=== PATIENT | male | born 1945 | race Caucasian/White ===

== ENCOUNTER 2020-01-22 14:32 | Outpatient (CLI) | payer MEDICARE, SELFPAY ==
[2020-01-22 15:37] LABS: Anion Gap 7 mmol/L (8-16); Blood Urea Nitrogen 11 mg/dL (9-20); Calcium 9.8 mg/dL (8.4-10.2); Carbon Dioxide 28 mmol/L (22-30); Chloride 105 mmol/L (98-107); Cholesterol 143 mg/dL (0-200); Estimated Glomerular Filt Rate > 60; Glucose 102 mg/dL (75-110); HDL Direct 48 mg/dL; Potassium 4.4 mmol/L (3.4-5.0); Sodium 140 mmol/L (137-145); Triglycerides 75 mg/dL (<150)
[2020-01-22 15:49] LABS: LDL Cholesterol Direct 74 mg/dL
[2020-01-22 16:12] LABS: Prostate Specific Antigen 3.4 ng/mL (< OR = 4.0)
[2020-01-22 16:20] LABS: Free T4 Free Thyroxine 1.01 ng/mL (0.78-2.19)
[2020-01-22 16:44] LABS: Hemoglobin A1C 5.3 % (<5.7)
== END 2020-01-22 14:33 | disposition home or self-care (01) ==
PROVIDERS: PCP Internal Medicine; Visit Provider Internal Medicine
DX: I10 Essential (primary) hypertension (principal); E78.2 Mixed hyperlipidemia; Z12.5 Encounter for screening for malignant neoplasm of prostate; Z79.899 Other long term (current) drug therapy
CPT/HCPCS: 36415; 80048; 80061; 83036; 84153; 84439; 84443; G0103

== ENCOUNTER 2020-06-09 13:37 | Outpatient (CLI) | payer MEDICARE, SELFPAY ==
[2020-06-09 14:24] LABS: Basophils Absolute Auto 0.1 K/mm3 (0.0-0.1); Basophils Percent Auto 0.6 % (0.2-1.2); Eosinophils Absolute Auto 0.1 K/mm3 (0-0.3); Eosinophils Percent Auto 1.4 % (0-4.4); Hematocrit 42.6 % (42.0-52.0); Hemoglobin 14.1 g/dL (14.0-18.0); Immature Granulocyte Absolute 0.04 K/mm3 (0.00-0.031); Immature Granulocyte Percent A 0.5 % (0-0.5); Lymphocytes Absolute Auto 2.59 K/mm3 (0.9-3.2); Lymphocytes Percent Auto 29.9 % (18.3-44.2); Mean Corpuscular HGB Conc 33.1 g/dl (32-36); Mean Corpuscular Hemoglobin 31.1 pg (26-34); Mean Corpuscular Volume 93.8 fl (80-100); Mean Platelet Volume 11.9 fl (7.4-10.4); Monocytes Absolute Auto 0.5 K/mm3 (0.1-0.6); Monocytes Percent Auto 5.8 % (2.6-8.5); Neutrophils Absolute Auto 5.4 K/mm3 (1.3-6.7); Neutrophils Percent Auto 61.8 % (45.5-73.1); Platelet Count Result 204 k/mm3 (150-375); Red Blood Count 4.54 M/mm3 (4.6-6.20); Red Cell Distribution Width 12.3 % (11.5-14.5); White Blood Count 8.7 K/mm3 (4.5-10.0)
[2020-06-09 14:32] LABS: Hemoglobin A1C 5.4 % (<5.7)
[2020-06-09 14:34] LABS: Potassium 4.1 mmol/L (3.4-5.0)
[2020-06-09 14:38] LABS: Alanine Aminotransferase 19 U/L (4-50); Albumin Level 4.3 g/dL (3.5-5.1); Alkaline Phosphatase 107 U/L (38-126); Anion Gap 5 mmol/L (8-16); Aspartate Amino Transferase 25 U/L (17-59); Bilirubin,Total 0.4 mg/dL (0.2-1.3); Blood Urea Nitrogen 12 mg/dL (9-20); Calcium 9.3 mg/dL (8.4-10.2); Carbon Dioxide 29 mmol/L (22-30); Chloride 106 mmol/L (98-107); Cholesterol 126 mg/dL (0-200); Estimated Glomerular Filt Rate > 60; Glucose 100 mg/dL (75-110); HDL Direct 41 mg/dL; Sodium 140 mmol/L (137-145); Triglycerides 84 mg/dL (<150)
[2020-06-09 14:46] LABS: LDL Cholesterol Direct 66 mg/dL
[2020-06-11 09:27] LABS: Homocysteine 15.5 umol/L (<11.4)
[2020-06-12 09:22] LABS: Vitamin D 1,25 (OH)2 Total 61 pg/mL (18-72); Vitamin D2 1,25 (OH)2 <8 pg/mL; Vitamin D3 1,25 (OH)2 61 pg/mL
== END 2020-06-09 13:38 | disposition home or self-care (01) ==
LOC: ANHLAB 13:40
PROVIDERS: PCP Internal Medicine; Visit Provider Internal Medicine
DX: E78.2 Mixed hyperlipidemia (principal); Z79.899 Other long term (current) drug therapy; I10 Essential (primary) hypertension; R79.89 Other specified abnormal findings of blood chemistry; E55.9 Vitamin D deficiency, unspecified
CPT/HCPCS: 36415; 80053; 80061; 82652; 83036; 83090; 84443; 85025

== ENCOUNTER 2020-10-30 14:58 | Outpatient (CLI) | payer MEDICARE, SELFPAY ==
[2020-10-30 15:38] LABS: Basophils Percent Auto 0.5 % (0.2-1.2); Eosinophils Absolute Auto 0.1 K/mm3 (0-0.3); Eosinophils Percent Auto 1.1 % (0-4.4); Hematocrit 43.7 % (42.0-52.0); Hemoglobin 14.3 g/dL (14.0-18.0); Immature Granulocyte Absolute 0.02 K/mm3 (0.00-0.031); Immature Granulocyte Percent A 0.2 % (0-0.5); Lymphocytes Absolute Auto 2.62 K/mm3 (0.9-3.2); Lymphocytes Percent Auto 30.9 % (18.3-44.2); Mean Corpuscular HGB Conc 32.7 g/dl (32-36); Mean Corpuscular Hemoglobin 32.1 pg (26-34); Monocytes Absolute Auto 0.6 K/mm3 (0.1-0.6); Monocytes Percent Auto 6.7 % (2.6-8.5); Neutrophils Absolute Auto 5.2 K/mm3 (1.3-6.7); Neutrophils Percent Auto 60.6 % (45.5-73.1); Platelet Count Result 175 k/mm3 (150-375); Red Blood Count 4.46 M/mm3 (4.6-6.20); Red Cell Distribution Width 12.5 % (11.5-14.5); White Blood Count 8.5 K/mm3 (4.5-10.0)
[2020-10-30 15:52] LABS: Anion Gap 7 mmol/L (8-16); Blood Urea Nitrogen 17 mg/dL (9-20); Calcium 9.7 mg/dL (8.4-10.2); Carbon Dioxide 27 mmol/L (22-30); Chloride 103 mmol/L (98-107); Cholesterol 139 mg/dL (0-200); Estimated Glomerular Filt Rate > 60; Glucose 87 mg/dL (65-110); HDL Direct 47 mg/dL; Potassium 4.3 mmol/L (3.4-5.0); Sodium 137 mmol/L (137-145); Triglycerides 94 mg/dL (<150)
[2020-10-30 16:04] LABS: LDL Cholesterol Direct 68 mg/dL
[2020-11-03 13:18] LABS: Homocysteine 11.1 umol/L (<11.4)
[2020-11-04 18:18] LABS: Vitamin D 1,25 (OH)2 Total 81 pg/mL (18-72); Vitamin D2 1,25 (OH)2 <8 pg/mL; Vitamin D3 1,25 (OH)2 81 pg/mL
== END 2020-10-30 14:59 | disposition home or self-care (01) ==
PROVIDERS: PCP Internal Medicine; Visit Provider Internal Medicine
DX: E55.9 Vitamin D deficiency, unspecified (principal); E78.2 Mixed hyperlipidemia; I10 Essential (primary) hypertension; R79.89 Other specified abnormal findings of blood chemistry
CPT/HCPCS: 36415; 80048; 80061; 82652; 83090; 85025

== ENCOUNTER 2021-01-18 11:12 | Outpatient (CLI) | payer MEDICARE, SELFPAY ==
--- NOTE | ~2021-01-18 | US_ITS ---
EXAMINATION: US aorta [facility] DATE: 01/18/2021 15:09 [employer] INDICATION: Abdominal aortic aneurysm screening. Smoking history. High cholesterol. Hypertension. History of MO. TECHNIQUE: Grayscale, color Doppler, and pulsed Doppler images of the aorta and common iliac arteries were obtained. COMPARISON: None. FINDINGS: The proximal aorta measures 2.5 cm greater dimension. The mid aorta measures 2 cm greatest sagittal d imension. The distal aorta measures 2.1 cm greatest sagittal dimension. The right common internal juana ac artery measures 9 mm. The left common iliac artery measures 9 mm. There is moderate diffuse athero sclerosis. IMPRESSION: 1. Atherosclerosis of the aorta without aneurysm. Reviewed, dictated and finalized at location A. [employer]
== END 2021-01-18 11:13 | disposition home or self-care (01) ==
LOC: ANHIMG 11:13
PROVIDERS: PCP Internal Medicine; Visit Provider Internal Medicine Cardiovascular Disease
DX: Z13.6 Encounter for screening for cardiovascular disorders (principal); Z72.0 Tobacco use
CPT/HCPCS: 76706

== ENCOUNTER 2021-04-06 14:13 | Outpatient (CLI) | payer MEDICARE, OTHER, SELFPAY ==
[2021-04-06 14:58] LABS: Anion Gap 10 mmol/L (8-16); Blood Urea Nitrogen 13 mg/dL (9-20); Calcium 9.5 mg/dL (8.4-10.2); Carbon Dioxide 27 mmol/L (22-30); Chloride 103 mmol/L (98-107); Cholesterol 128 mg/dL (0-200); Estimated Glomerular Filt Rate > 60; Glucose 111 mg/dL (65-110); HDL Direct 48 mg/dL; Potassium 4.1 mmol/L (3.4-5.0); Sodium 140 mmol/L (137-145); Triglycerides 72 mg/dL (<150)
[2021-04-06 15:08] LABS: LDL Cholesterol Direct 63 mg/dL
[2021-04-06 15:28] LABS: Prostate Specific Antigen 5.5 ng/mL (< OR = 4.0)
[2021-04-06 17:48] LABS: Free T4 Free Thyroxine 0.94 ng/mL (0.78-2.19); Vitamin D 25 Hydroxy 79.3 ng/mL
[2021-04-06 18:14] LABS: Hemoglobin A1C 5.3 % (<5.7)
== END 2021-04-06 14:14 | disposition home or self-care (01) ==
PROVIDERS: PCP Internal Medicine; Visit Provider Internal Medicine
DX: E55.9 Vitamin D deficiency, unspecified (principal); Z12.5 Encounter for screening for malignant neoplasm of prostate; I10 Essential (primary) hypertension; E78.2 Mixed hyperlipidemia; Z79.899 Other long term (current) drug therapy
CPT/HCPCS: 36415; 80048; 80061; 82306; 83036; 84153; 84439; 84443; G0103

== ENCOUNTER 2021-08-11 16:45 | Outpatient (CLI) | payer MEDICARE, OTHER, SELFPAY ==
--- NOTE | ~2021-08-11 | XR_ITS ---
EXAMINATION: XR chest 2V DATE: 08/11/2021 17:04 INDICATION: Personal history of nicotine dependence TECHNIQUE: PA and lateral views of the chest are obtained. COMPARISON: 08/28/2018 FINDINGS: The lungs are free of acute opacities. There is no pleural effusion or pneumothorax. The ca rdiomediastinal silhouette is normal. There is mild thoracic spondylosis. IMPRESSION: 1. No acute cardiopulmonary abnormality. Reviewed, dictated and finalized at location F.
== END 2021-08-11 16:46 | disposition home or self-care (01) ==
PROVIDERS: PCP Internal Medicine; Visit Provider Internal Medicine
DX: R05.3 Chronic cough (principal)
CPT/HCPCS: 71046

== ENCOUNTER 2021-08-24 17:53 | Outpatient (CLI) | payer MEDICARE, OTHER, SELFPAY ==
[2021-08-24 18:14] LABS: Basophils Percent Auto 0.3 % (0.2-1.2); Eosinophils Absolute Auto 0.1 K/mm3 (0-0.3); Eosinophils Percent Auto 0.8 % (0-4.4); Hematocrit 42.8 % (42.0-52.0); Hemoglobin 13.9 g/dL (14.0-18.0); Immature Granulocyte Absolute 0.04 K/mm3 (0.00-0.031); Immature Granulocyte Percent A 0.4 % (0-0.5); Lymphocytes Absolute Auto 2.33 K/mm3 (0.9-3.2); Mean Corpuscular HGB Conc 32.5 g/dl (32-36); Mean Corpuscular Hemoglobin 31.8 pg (26-34); Mean Corpuscular Volume 97.9 fl (80-100); Monocytes Absolute Auto 0.6 K/mm3 (0.1-0.6); Monocytes Percent Auto 5.5 % (2.6-8.5); Neutrophils Absolute Auto 7.1 K/mm3 (1.3-6.7); Platelet Count Result 174 k/mm3 (150-375); Red Blood Count 4.37 M/mm3 (4.6-6.20); Red Cell Distribution Width 12.4 % (11.5-14.5); White Blood Count 10.1 K/mm3 (4.5-10.0)
[2021-08-24 18:21] LABS: Hemoglobin A1C 5.3 % (<5.7)
[2021-08-24 18:26] LABS: Alanine Aminotransferase 17 U/L (6-50); Alkaline Phosphatase 85 U/L (38-126); Anion Gap 4 mmol/L (8-16); Aspartate Amino Transferase 24 U/L (17-59); Bilirubin,Total 0.5 mg/dL (0.2-1.3); Blood Urea Nitrogen 14 mg/dL (9-20); Calcium 9.7 mg/dL (8.4-10.2); Carbon Dioxide 29 mmol/L (22-30); Chloride 106 mmol/L (98-107); Estimated Glomerular Filt Rate > 60; Glucose 92 mg/dL (65-110); Potassium 3.9 mmol/L (3.4-5.0); Sodium 139 mmol/L (137-145)
[2021-08-24 19:05] LABS: Free T4 Free Thyroxine 0.98 ng/mL (0.78-2.19); Vitamin D 25 Hydroxy 87.4 ng/mL
[2021-08-25 10:38] LABS: Cholesterol 130 mg/dL (0-200); HDL Direct 39 mg/dL; Triglycerides 102 mg/dL (<150)
[2021-08-25 10:49] LABS: LDL Cholesterol Direct 64 mg/dL
== END 2021-08-24 17:54 | disposition home or self-care (01) ==
LOC: ANHLAB 17:53
PROVIDERS: PCP Internal Medicine; Visit Provider Internal Medicine
DX: E55.9 Vitamin D deficiency, unspecified (principal); I10 Essential (primary) hypertension; Z13.1 Encounter for screening for diabetes mellitus; Z79.899 Other long term (current) drug therapy; Z13.29 Encounter for screening for other suspected endocrine disorder; E78.2 Mixed hyperlipidemia
CPT/HCPCS: 36415; 80053; 80061; 82306; 83036; 84439; 84443; 85025

== ENCOUNTER 2021-10-14 16:03 | Outpatient (CLI) | payer MEDICARE, OTHER, SELFPAY ==
--- NOTE | ~2021-10-14 | CT_ITS ---
EXAMINATION: CT lung screening DATE: 10/14/2021 16:21 INDICATION: Due for LDCT TECHNIQUE: Computed tomography (CT) of the chest was performed without intravenous contrast. Addition al 3D reconstructions utilizing coronal maximum intensity projection (MIP) were performed. Automated exposure control and iterative reconstruction technique were employed. The dose-length product was 87 .99 mGy-cm. COMPARISON: None FINDINGS: Mild elevation the left hemidiaphragm. Minimal dependent atelectasis in the bilateral lower lobes. No pneumonia, suspicious pulmonary nodules, pulmonary edema or pleural effusion. Mild cardiomegaly. Ath erosclerotic coronary artery disease with atherosclerotic calcifications and/or coronary artery stent ing. No pericardial effusion. Thoracic aorta is normal in caliber. No pathologically enlarged thoraci c lymphadenopathy. There are couple low-attenuation cysts in the right hepatic lobe the larger measur ing 1.5 cm. Mild to moderate spondylosis. IMPRESSION: 1. . Lung-RADS category 1: Negative. Continue annual screening with noncontrast low-dose chest CT in 12 months. Reviewed, dictated and finalized at location A.
== END 2021-10-14 16:04 | disposition home or self-care (01) ==
PROVIDERS: PCP Internal Medicine; Visit Provider Internal Medicine
DX: Z12.2 Encounter for screening for malignant neoplasm of respiratory organs (principal); Z87.891 Personal history of nicotine dependence
CPT/HCPCS: 71271

== ENCOUNTER 2022-01-06 14:36 | Outpatient (CLI) | payer MEDICARE, OTHER, SELFPAY ==
[2022-01-06 15:17] LABS: Basophils Percent Auto 0.3 % (0.2-1.2); Eosinophils Absolute Auto 0.1 K/mm3 (0-0.3); Eosinophils Percent Auto 0.7 % (0-4.4); Hematocrit 43.4 % (42.0-52.0); Hemoglobin 14.7 g/dL (14.0-18.0); Immature Granulocyte Absolute 0.03 K/mm3 (0.00-0.031); Immature Granulocyte Percent A 0.3 % (0-0.5); Lymphocytes Absolute Auto 2.38 K/mm3 (0.9-3.2); Lymphocytes Percent Auto 23.9 % (18.3-44.2); Mean Corpuscular HGB Conc 33.9 g/dl (32-36); Mean Corpuscular Hemoglobin 31.6 pg (26-34); Mean Corpuscular Volume 93.3 fl (80-100); Mean Platelet Volume 11.4 fl (7.4-10.4); Monocytes Absolute Auto 0.5 K/mm3 (0.1-0.6); Monocytes Percent Auto 5.1 % (2.6-8.5); Neutrophils Absolute Auto 6.9 K/mm3 (1.3-6.7); Neutrophils Percent Auto 69.7 % (45.5-73.1); Platelet Count Result 212 k/mm3 (150-375); Red Blood Count 4.65 M/mm3 (4.6-6.20); Red Cell Distribution Width 12.3 % (11.5-14.5); White Blood Count 9.9 K/mm3 (4.5-10.0)
[2022-01-06 15:32] LABS: Alanine Aminotransferase 24 U/L (6-50); Albumin Level 4.6 g/dL (3.5-5.1); Alkaline Phosphatase 108 U/L (38-126); Anion Gap 9 mmol/L (8-16); Aspartate Amino Transferase 32 U/L (17-59); Bilirubin,Total 0.9 mg/dL (0.2-1.3); Blood Urea Nitrogen 12 mg/dL (9-20); Calcium 9.3 mg/dL (8.4-10.2); Carbon Dioxide 26 mmol/L (22-30); Chloride 104 mmol/L (98-107); Cholesterol 150 mg/dL (0-200); Estimated Glomerular Filt Rate > 60; Glucose 105 mg/dL (65-110); HDL Direct 48 mg/dL; Potassium 4.2 mmol/L (3.4-5.0); Sodium 139 mmol/L (137-145); Triglycerides 60 mg/dL (<150)
[2022-01-06 15:42] LABS: LDL Cholesterol Direct 77 mg/dL
[2022-01-06 17:20] LABS: Free T4 Free Thyroxine 1.08 ng/mL (0.78-2.19); Hemoglobin A1C 5.6 % (<5.7); Vitamin D 25 Hydroxy 72.1 ng/mL
== END 2022-01-06 14:37 | disposition home or self-care (01) ==
PROVIDERS: PCP Internal Medicine; Visit Provider Internal Medicine
DX: Z13.1 Encounter for screening for diabetes mellitus (principal); Z79.899 Other long term (current) drug therapy; E55.9 Vitamin D deficiency, unspecified; E78.2 Mixed hyperlipidemia; I10 Essential (primary) hypertension; Z13.29 Encounter for screening for other suspected endocrine disorder
CPT/HCPCS: 36415; 80053; 80061; 82306; 83036; 84439; 84443; 85025

== ENCOUNTER 2022-05-21 12:50 | Outpatient (CLI) | payer MEDICARE, SELFPAY ==
[2022-05-21 13:09] LABS: Basophils Percent Auto 0.4 % (0.2-1.2); Eosinophils Absolute Auto 0.1 K/mm3 (0-0.3); Hematocrit 45.5 % (42.0-52.0); Immature Granulocyte Absolute 0.04 K/mm3 (0.00-0.031); Immature Granulocyte Percent A 0.4 % (0-0.5); Lymphocytes Absolute Auto 2.55 K/mm3 (0.9-3.2); Lymphocytes Percent Auto 27.7 % (18.3-44.2); Mean Corpuscular Hemoglobin 32.5 pg (26-34); Mean Corpuscular Volume 98.7 fl (80-100); Mean Platelet Volume 11.9 fl (7.4-10.4); Monocytes Absolute Auto 0.5 K/mm3 (0.1-0.6); Monocytes Percent Auto 5.4 % (2.6-8.5); Neutrophils Percent Auto 65.1 % (45.5-73.1); Platelet Count Result 191 k/mm3 (150-375); Red Blood Count 4.61 M/mm3 (4.6-6.20); Red Cell Distribution Width 12.3 % (11.5-14.5); White Blood Count 9.2 K/mm3 (4.5-10.0)
[2022-05-21 13:13] LABS: Alanine Aminotransferase 23 U/L (6-50); Albumin Level 4.5 g/dL (3.5-5.1); Alkaline Phosphatase 96 U/L (38-126); Anion Gap 4 mmol/L (8-16); Aspartate Amino Transferase 28 U/L (17-59); Bilirubin,Total 0.6 mg/dL (0.2-1.3); Blood Urea Nitrogen 16 mg/dL (9-20); Calcium 9.5 mg/dL (8.4-10.2); Carbon Dioxide 29 mmol/L (22-30); Chloride 103 mmol/L (98-107); Cholesterol 135 mg/dL (0-200); Estimated Glomerular Filt Rate > 60; Glucose 98 mg/dL (65-110); HDL Direct 52 mg/dL; Potassium 4.6 mmol/L (3.4-5.0); Sodium 136 mmol/L (137-145); Triglycerides 56 mg/dL (<150)
[2022-05-21 13:24] LABS: LDL Cholesterol Direct 71 mg/dL
[2022-05-21 13:27] LABS: Free T4 Free Thyroxine 0.97 ng/mL (0.78-2.19); Hemoglobin A1C 5.3 % (<5.7); Vitamin D 25 Hydroxy 79.7 ng/mL
== END 2022-05-21 12:51 | disposition home or self-care (01) ==
PROVIDERS: PCP Internal Medicine; Visit Provider Internal Medicine
DX: E55.9 Vitamin D deficiency, unspecified (principal); Z13.29 Encounter for screening for other suspected endocrine disorder; Z79.899 Other long term (current) drug therapy; E78.2 Mixed hyperlipidemia; I10 Essential (primary) hypertension; Z13.1 Encounter for screening for diabetes mellitus
CPT/HCPCS: 36415; 80053; 80061; 82306; 83036; 84439; 84443; 85025

== ENCOUNTER 2022-05-30 15:53 | Inpatient (IN) | payer MEDICARE, OTHER, SELFPAY ==
[2022-05-27 16:20] VITALS: BMI 25.7
[2022-05-30] VITALS (37 sets, daily range): BP systolic 70–176; BP diastolic 39–102; PULSE 38–78; RESP 12–20; TEMP 36.5–36.9; O2SAT 96–100; BMI 24.7
[2022-05-30 08:46] LABS: Basophils Percent Auto 0.4 % (0.2-1.2); Eosinophils Absolute Auto 0.1 K/mm3 (0-0.3); Eosinophils Percent Auto 1.1 % (0-4.4); Hemoglobin 14.9 g/dL (14.0-18.0); Immature Granulocyte Absolute 0.02 K/mm3 (0.00-0.031); Immature Granulocyte Percent A 0.3 % (0-0.5); Lymphocytes Absolute Auto 1.64 K/mm3 (0.9-3.2); Lymphocytes Percent Auto 22.4 % (18.3-44.2); Mean Corpuscular HGB Conc 33.1 g/dl (32-36); Mean Corpuscular Hemoglobin 32.3 pg (26-34); Mean Corpuscular Volume 97.6 fl (80-100); Mean Platelet Volume 11.6 fl (7.4-10.4); Monocytes Absolute Auto 0.5 K/mm3 (0.1-0.6); Monocytes Percent Auto 6.4 % (2.6-8.5); Neutrophils Absolute Auto 5.1 K/mm3 (1.3-6.7); Neutrophils Percent Auto 69.4 % (45.5-73.1); Platelet Count Result 201 k/mm3 (150-375); Red Blood Count 4.61 M/mm3 (4.6-6.20); Red Cell Distribution Width 12.3 % (11.5-14.5); White Blood Count 7.3 K/mm3 (4.5-10.0)
[2022-05-30 08:56] LABS: Anion Gap 4 mmol/L (8-16); Blood Urea Nitrogen 17 mg/dL (9-20); Calcium 9.3 mg/dL (8.4-10.2); Carbon Dioxide 30 mmol/L (22-30); Chloride 106 mmol/L (98-107); Estimated CRCL calculation 49 ml/min; Estimated Glomerular Filt Rate > 60; Glucose 86 mg/dL (65-110); Sodium 140 mmol/L (137-145)
[2022-05-30 09:00] LABS: INR 1.1; Prothrombin Time 13.3 Seconds (11.1-14.7)
--- NOTE | 2022-05-30 10:28 | PM.IMHP ---
H&P: HPI History of Present Illness Date/Time: 05/30/22 10:28 Chief Complaint: intermittent chest pain Narrative: this is a 76-year-old man with coronary artery disease, previous PCI, hypertension dyslipidemia and ongoing cigarette smoking. He has been having episodes of intermittent chest pain for a couple of months that are occurring in a nonexertional fashion. Nuclear stress testing demonstrates a large perfusion defect that appears to be fixed in the inferior wall and somewhat reversible in the lateral wall. In this setting follow-up angiography has been recommended. Review of Systems Constitutional: Constitutional: Reports no additional constitutional complaints Eyes: Eyes: Reports no additional eye complaints ENT: Reports system reviewed and no additional complaints, except as documented Cardiovascular: Cardiovascular: Reports as per HPI and Reports chest pain Respiratory: Respiratory: Reports no additional respiratory complaints Gastrointestinal: Gastrointestinal: Reports no additional gastrointestinal complaints Musculoskeletal: Musculoskeletal: Reports no additional musculoskeletal complaints Integumentary/Breasts: Skin/Breast: Reports system reviewed and no additional complaints, except as docu Neurologic: Reports system reviewed and no additional complaints, except as documented [facility] Past Medical History Medical History (Updated 01/06/22 @ 14:07 by Jeane Nation [facility]) ASHD (arteriosclerotic heart disease) BMI 25.0-25.9,adult BMI 26.0-26.9,adult BMI 27.0-27.9,adult BMI 28.0-28.9,adult BPH (benign prostatic hyperplasia) Dupuytren's contracture of left hand Elevated homocysteine Elevated PSA Encounter for routine adult health examination without abnormal findings Encounter for special screening examination for neoplasm of prostate Essential (primary) hypertension Hearing loss Hx of colonic polyps Hyperlipidemia Medicare annual wellness visit, subsequent On snf drug therapy Pain of left thumb Tobacco abuse Travelers' diarrhea Vitamin D deficiency Family History Family History Mother Patient's mother is in good health, Onset Age: 93 Father Cerebrovascular accident Patient's father is Sibling Family history of coronary artery disease Other Family history of dementia Social History Social History (Updated 01/06/22 @ 14:07 by Jeane Nation CMA) Smoking packs per day: 0.5 Smoking cigarettes per day: 10.0 Years smoked: 30 Smoking pack-years: 15.00 Smoking status: Current every day smoker Tobacco type: cigarettes Second hand tobacco smoke exposure: Yes Smoking end date: 03/13/09 Alcohol intake: current Alcohol use details: occasionally Substance use: never Lack of Transportation: No Lack of Food: Never True Current Housing: I Have Housing Concerned About Future Housing: No Difficulty Paying Gas/Electric Bills: No Difficulty Paying for Meds: No Currently Unemployed: No Education: High School Diploma/GED Difficulty w/ Childcare or Family Care: No Living arrangements: with family Gender identity (if verbalized by the patient): Male Spiritual care concerns: No Meds Home Medications and Allergies Home Medications Medication Instructions Recorded Confirmed Type omega-3 fatty acids 1,000 mg 1,000 mg PO BID 01/15/19 05/27/22 History capsule (Fish Oil Concentrate) cholecalciferol (vitamin D3) 25 25 mcg PO DAILY 09/12/19 05/27/22 History mcg (1,000 unit) capsule mecobalamin (vitamin B12) 1,000 1,000 mcg sublingual DAILY 06/25/20 05/27/22 History mcg disintegrating tablet,sublingual atorvastatin 80 mg tablet See Rx Instructions .Route 01/18/21 05/27/22 Rx .COMPLEX #90 tabs clopidogrel 75 mg tablet See Rx Instructions .Route 01/18/21 05/30/22 Rx .COMPLEX #90 tabs lisinopril 10 mg tablet See Rx Instructions .Route 01/18/2105/30
--- NOTE | 2022-05-30 10:31 | WPDMODSED ---
Moderate Sedation Note-Pt Data Patient Data Diagnosis: coronary artery disease with intermittent chest pain previous PCI abnormal nuclear stress test Present Complaint: intermittent chest pain Procedure to be performed/Plan: left heart catheterization Allergies Allergy/AdvReac Type Severity Reaction Status Date / Time No Known Allergies Allergy Verified 05/27/22 16:46 Home Medications Medication Instructions Recorded Confirmed Type omega-3 fatty acids 1,000 mg 1,000 mg PO BID 01/15/19 05/27/22 History capsule (Fish Oil Concentrate) cholecalciferol (vitamin D3) 25 25 mcg PO DAILY 09/12/19 05/27/22 History mcg (1,000 unit) capsule mecobalamin (vitamin B12) 1,000 1,000 mcg sublingual DAILY 06/25/20 05/27/22 History mcg disintegrating tablet,sublingual atorvastatin 80 mg tablet See Rx Instructions .Route 01/18/21 05/27/22 Rx .COMPLEX #90 tabs clopidogrel 75 mg tablet See Rx Instructions .Route 01/18/21 05/30/22 Rx .COMPLEX #90 tabs lisinopril 10 mg tablet See Rx Instructions .Route 01/18/21 05/30/22 Rx .COMPLEX #90 tabs metoprolol tartrate 25 mg tablet See Rx Instructions .Route 01/18/21 05/30/22 Rx .COMPLEX #180 tabs montelukast 10 mg tablet See Rx Instructions .Route 01/18/21 05/27/22 Rx .COMPLEX #90 tabs aspirin 81 mg tablet,delayed 81 mg PO DAILY 10/04/21 05/30/22 History release nitroglycerin 0.4 mg sublingual 0.4 mg sublingual Q5MIN 05/27/22 05/27/22 History tablet Current Medications: Active Medications Sodium Chloride (Normal Saline Iv) 500 mls @ 100 mls/hr IV CONT .Q5H NIKKY Sedation/Anesthesia: No previous sedation/anesthesia problems (including family history). [facility] Past Medical History Medical History (Updated 01/06/22 @ 14:07 by Jeane Nation CMA) ASHD (arteriosclerotic heart disease) BMI 25.0-25.9,adult BMI 26.0-26.9,adult BMI 27.0-27.9,adult BMI 28.0-28.9,adult BPH (benign prostatic hyperplasia) Dupuytren's contracture of left hand Elevated homocysteine Elevated PSA Encounter for routine adult health examination without abnormal findings Encounter for special screening examination for neoplasm of prostate Essential (primary) hypertension Hearing loss Hx of colonic polyps Hyperlipidemia Medicare annual wellness visit, subsequent On termite treater helper drug therapy Pain of left thumb Tobacco abuse Travelers' diarrhea Vitamin D deficiency Family History Family History Mother Patient's mother is in good health, Onset Age: 93 Father Cerebrovascular accident Patient's father is Sibling Family history of coronary artery disease Other Family history of dementia Social History Social History (Updated 01/06/22 @ 14:[address] [facility]) Smoking packs per day: 0.5 Smoking cigarettes per day: 10.0 Years smoked: 30 Smoking pack-years: 15.00 Smoking status: Current every day smoker Tobacco type: cigarettes Second hand tobacco smoke exposure: Yes Smoking end date: 03/13/09 Alcohol intake: current Alcohol use details: occasionally Substance use: never Lack of Transportation: No Lack of Food: Never True Current Housing: I Have Housing Concerned About Future Housing: No Difficulty Paying Gas/Electric Bills: No Difficulty Paying for Meds: No Currently Unemployed: No Education: High School Diploma/GED Difficulty w/ Childcare or Family Care: No Living arrangements: with family Gender identity (if verbalized by the patient): Male Spiritual care concerns: No Mod Sed Physical Exam Physical Exam Pre Procedural Exam: Normal: Appearance, Neck, Throat, Airway, Lungs, Heart Size, Heart Rate, Heart Rhythm, Neuro Exam and Extremities Hours since solid foods: 12 Hours since liquid intake: 12 Mallampati Classification: class II Internal Medicine - PN: Obj Da Vital Signs Vital Signs: Vital Signs - 24 hr
--- NOTE | 2022-05-30 11:28 | WPDCARDPROC ---
Cardiac Cath Procedure Note Date of procedure:: 05/30/22 Performing physician:: Israel Jaimes MD Indication:: chest pain coronary artery disease with previous PCI/mi abnormal nuclear stress test Brief clinical history:: this is a 76-year-old man with coronary artery disease hypertension and ongoing cigarette smoking. In the remote past he underwent stenting of his LAD and right coronary arteries appear he now is having recurrent chest pain and nuclear stress testing suggests previous inferior infarction as well as some lateral ischemia. Procedure Procedure performed:: Left ventriculogram coronary angiogram PCI(MITCH) to mid right coronary artery Sedation/Medication given:: fentanyl 25 Versed 2 mg case start time 1044 case end time 11:28 a.m. sedation provided Emily Valenzuela RN, trained observer Access site:: right femoral artery Estimated blood loss:: 25 cc Procedure note:: patient was brought to the cardiac catheterization lab postabsorptive state where the right femoral triangle was prepared usual fashion. Anesthesia was provided with 1% lidocaine infiltrated locally. Using modified Seldinger technique 5 [place] sheath was placed into the femoral artery and left heart catheterization was carried out. I used a 5 [place] angled pigtail catheter to document left-sided hemodynamics and to inject LV g in the 30 degree ARSHAD projection. Following this I used a standard 5 [place] FL4 catheter 18 to the left coronary artery and then a 5 [place] JR4 catheter to engage inject the right coronary artery. The cineangiograms were then reviewed and after to his PCI the RCA recommended carried out as detailed below. The patient is chronically taking an aspirin clopidogrel and did not therefore receive any additional anti-platelet therapy in his procedure. He was anticoagulated bolus and infusion Angiomax for this intervention. Prior to intervention the 5 [place] sheath was exchanged over the guidewire for 6 [place] sheath. Procedure was carried out as described below and was well tolerated and uncomplicated. 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 Findings:: Hemodynamics: Central aortic pressure is 1 38 over 58 left ventricle 138 over for end-diastolic is 20 no gradient pullback across the aortic valve. Left ventricle: The LV is normal in size the mid to inferior posterior segments are akinetic. The remainder of the LV contracts well the global ejection fraction is visually estimated at 50%. The left main coronary artery is widely patent the left anterior descending is a medium caliber artery extending down to around the apex. Long previously deployed stent visible in the proximal LAD there is no significant loss of lumen or stenosis in the LAD. The circumflex is a moderate caliber artery giving rise to 4 marginal branches. These are small vessels which are all angiographically free of disease. Right coronary artery is large in caliber and dominant to the posterior circulation the right coronary artery has a long visible stent from the proximal portion down to the junction between the 2nd and 3rd portions of the artery. In distal 3rd of this stented area there is a 99% complex looking stenosis. There was NELA 3 flow in the right coronary artery. Intervention: The right coronary artery was engaged using a 6 [place] JR4 guiding catheter. I used a 0.014 BMW wire to traverse the stenosis at which was advanced without difficulty into the largest RPL branch. Following this I elected to gently pre-dilated this lesion with a 2 by 20 mm standard balloon. Following this I dilated the area with a 3.5 x 20 mm noncompliant balloon at 16 atmospheres which provided good patency with minimal residual stenosis. Lastly I elected to place another stent using a 3.5 x 18 mm Orsiro drug-eluting stent at the target lesion which was in the previously deployed stent and dilated this at 16 atmospher
--- NOTE | 2022-05-30 12:23 | SUR.PHASEII ---
Angiomax drip complete at this time. c/o back pain
[2022-05-30] MEDS: ACETAMINOPHEN 325 MG TABLET 650 MG PO (12:37)
--- NOTE | 2022-05-30 15:16 | SUR.PHASEII ---
Pt given 0.5 mg of atropine after sheath removal while holding pressure. Pt slightly sweaty, heart rate decreased to as low as 31, and blood pressure dropped. Dr. Jaimes notified. Vital signs returned to baseline.
--- NOTE | 2022-05-30 16:49 | PC.NURSE ---
Phone report to JUSTIN Hargrove at this time. SBAR was sent at 1624. No hematoma or bruising to rt groin. Drsg rt groin remains d/i. Good CMS below rt femoral arterial puncture site. VS stable. No c/o chest pain or sob. IV site saline locked and patent/intact. Belongings and family sent to room 211 with pt.
[2022-05-30] MEDS: OMEGA 3 POLYUNSAT FATTY ACIDS 1 GM CAP PO (17:16)
[2022-05-30] MEDS: SODIUM CHLORIDE 0.9% IV 500 ML 100 ML IV CONT (18:30)
[2022-05-30] MEDS: METOPROLOL TARTRATE 25 MG TABLET BY MOUTH (20:20)
[2022-05-31] VITALS (7 sets, daily range): BP systolic 131–141; BP diastolic 43–66; PULSE 45–82; RESP 16–18; TEMP 36.3–36.6; O2SAT 97–98
[2022-05-31] MEDS: lisinopriL 10 MG TABLET BY MOUTH (08:53)
[2022-05-31] MEDS: ATORVASTATIN 40 MG TABLET BY MOUTH (08:53)
[2022-05-31] MEDS: CLOPIDOGREL BISULFATE 75 MG TABLET BY MOUTH (08:53)
[2022-05-31] MEDS: METOPROLOL TARTRATE 25 MG TABLET BY MOUTH (08:53)
[2022-05-31] MEDS: OMEGA 3 POLYUNSAT FATTY ACIDS 1 GM CAP PO (08:53)
[2022-05-31] MEDS: CHOLECALCIFEROL 1,000 UNITS TABLET 1000 UNITS PO (08:53)
[2022-05-31] MEDS: MONTELUKAST SODIUM 10 MG TABLET BY MOUTH (08:54)
[2022-05-31] MEDS: ASPIRIN 81 MG ENTERIC TABLET PO (08:57)
--- NOTE | 2022-05-31 10:53 | PM.DS ---
DS: Admitting Diagnosis Discharge Date 05/31/2022 Admitting Diagnosis Coronary artery disease DS: Discharge Diagnosis Discharge Diagnosis (1) ASHD (arteriosclerotic heart disease): Code(s): I25.10 - Atherosclerotic heart disease of nez perce coronary artery without angina pectoris Status: Acute Plan this is a 76-year-old man known to have coronary disease previous PCI with stenting of his LAD and right coronary arteries in the remote past. He has hypertension dyslipidemia and continues to smoke. He is now having episodes of intermittent chest pain in a nonexertional fashion for a couple of months and has an abnormal nuclear stress test. In this setting a follow-up angiogram has been recommended. Angiogram revealed right coronary dominant circulation with coronary artery disease with 99% in stent stenosis in the mid RCA. This was treated with balloon angioplasty and placement of one MITCH. Continue ASA, plavix, statin, and risk factor modification. DS: Summary Hospital Course Hospital Course: 05/30/2022: Underwent elective outpatient cath that revealed right coronary dominant circulation with coronary artery disease with 99% in stent stenosis in the mid RCA. This was treated with balloon angioplasty and placement of one MITCH. No post-procedural complications. Time Spent with Patient Time attestation: Total time spent providing and/or coordinating discharge services: Exam Const: General: comfortable and no acute distress Other: Pleasant white male appearing his stated age in no obvious distress HENMT: Mouth: Yes moist mucous membranes Eyes: Sclera: sclerae normal Pupils: Equal, round and reactive pupils present Neck: Neck: supple and no JVD Other: carotid pulses are intact bilaterally Resp: Effort & Inspection: normal respiratory effort Auscultation: clear to auscultation bilaterally Cardio: Rate: regular rate Rhythm: regular rhythm GI: Auscultation: normal bowel sounds Skin: General skin exam: normal color Neuro: Cranial nerves: Yes Equal, round and reactive pupils present Other: alert and oriented normal cognition Extrem: Other: no edema, adequate perfusion Discharge Plan Discharge Consulting providers: Cindy Grullon Discharging Clinician: Cindy Grullon Patient Disposition: Home, Self-Care Activity: other - see discharge instructions Diet: heart healthy Discharge Instructions: [facility] [address] [place] [address] DISCHARGE INSTRUCTIONS - POST CARDIAC CATH Activity Restriction 1. No Driving for 24 hours 2. No lifting, pushing or pulling more than 10 LBS for 1 week 3. No strenuous activity or exercising for 1 week 4. Shower after 24 hours, do not soak in any water such as hot tubs or bath tubs Wound Care 1. Remove dressing 24 hours after your procedure prior to showering 2. Lather soap and water to puncture site and rinse then pat dry 3. You may apply a new band aid to the site and remove aft er 24 hours then leave open to air 4. Monitor daily for redness, drainage, mild swelling and fever Report IMMEDIATELY: CALL 911 1. If you experience any swelling or bleeding from puncture site. Hold firm pressure over the puncture site until help arrives 2. If you experience any new discomfort in you back, neck, jaw, stomach or arm. Any shortness of breath, nausea, vomiting, or cold sweats 3. If you experi
== END 2022-05-31 11:50 | disposition home or self-care (01) | DRG 247 ==
LOC: ANHIMU 16:37
PROVIDERS: Admitting Provider Specialist; PCP Internal Medicine; Visit Provider Specialist
PROC: 4A023N7 Measurement of Cardiac Sampling and Pressure, Left Heart, Percutaneous Approach (ICD-10-PCS; CPT 93452; principal; 2022-05-30 10:00)
PROC: 027034Z Dilation of Coronary Artery, One Artery with Drug-eluting Intraluminal Device, Percutaneous Approach (ICD-10-PCS; 2022-05-30 10:00)
DX: T82.855A Stenosis of coronary artery stent, initial encounter (principal); I25.10 Atherosclerotic heart disease of native coronary artery without angina pectoris; I10 Essential (primary) hypertension; E78.5 Hyperlipidemia, unspecified; F17.210 Nicotine dependence, cigarettes, uncomplicated; Z82.49 Family history of ischemic heart disease and other diseases of the circulatory system; Z79.899 Other long term (current) drug therapy; Z95.5 Presence of coronary angioplasty implant and graft
CPT/HCPCS: 36415; 80048; 85025; 85610; 93458; A9270; C1725; C1769; C1874; C1887; C1894; C9600; J0461; J0583; J1644; J2250; J3010; J7040

== ENCOUNTER 2022-09-28 13:37 | Outpatient (CLI) | payer MEDICARE, OTHER, SELFPAY ==
[2022-09-28 16:55] LABS: Alanine Aminotransferase 21 U/L (6-50); Albumin Level 4.4 g/dL (3.5-5.1); Alkaline Phosphatase 114 U/L (38-126); Anion Gap 5 mmol/L (8-16); Aspartate Amino Transferase 28 U/L (17-59); Bilirubin,Total 0.6 mg/dL (0.2-1.3); Blood Urea Nitrogen 12 mg/dL (9-20); Calcium 9.4 mg/dL (8.4-10.2); Carbon Dioxide 32 mmol/L (22-30); Chloride 104 mmol/L (98-107); Cholesterol 145 mg/dL (0-200); Estimated Glomerular Filt Rate > 60; Glucose 116 mg/dL (65-110); HDL Direct 48 mg/dL; Potassium 3.9 mmol/L (3.4-5.0); Sodium 141 mmol/L (137-145); Triglycerides 103 mg/dL (<150)
[2022-09-28 17:06] LABS: LDL Cholesterol Direct 73 mg/dL
[2022-09-28 18:14] LABS: Hemoglobin A1C 5.4 % (<5.7)
== END 2022-09-28 13:38 | disposition home or self-care (01) ==
PROVIDERS: PCP Internal Medicine; Visit Provider Internal Medicine
DX: Z13.1 Encounter for screening for diabetes mellitus (principal); Z79.899 Other long term (current) drug therapy; I10 Essential (primary) hypertension; E78.2 Mixed hyperlipidemia
CPT/HCPCS: 36415; 80053; 80061; 83036

== ENCOUNTER 2023-05-18 11:26 | Outpatient (CLI) | payer MEDICARE, SELFPAY ==
--- NOTE | 2023-05-18 11:37 | ECG_ITS ---
Measurements Intervals [place] Rate: 56 P: 58 MA: 188 QRS: 58 QRSD: 81 T: 55 QT: 437 QTc: 423 Interpretive Statements SINUS BRADYCARDIA VOLTAGE CRITERIA FOR LVH MINIMAL Q WAVES- LATERAL LEADS INFERIOR INFARCT, AGE INDETERMINATE ABNORMAL ECG COMPARED TO ECG 08/28/2018 18:22:39 SINUS BRADYCARDIA NOW PRESENT Electronically Signed On 05-18-2023 12:10:56 PARTICLE BOARD SUPERVISOR by Sunil Carlin D.O.
== END 2023-05-18 11:27 | disposition home or self-care (01) ==
LOC: ANHSURGERY 11:33
PROVIDERS: PCP Internal Medicine; Visit Provider Surgery
DX: K40.20 Bilateral inguinal hernia, without obstruction or gangrene, not specified as recurrent (principal); I10 Essential (primary) hypertension; Z01.818 Encounter for other preprocedural examination
CPT/HCPCS: 36415; 86850; 86900; 86901; 93005

== ENCOUNTER 2023-05-23 01:56 | Day surgery (SDC) | payer MEDICARE, SELFPAY ==
[2023-03-31 08:36] VITALS: BMI 26.3
--- NOTE | 2023-03-31 08:57 | PC.NURSE ---
Report to the Outpatient Waiting Room, entrance under the green pavilion located off [facility], at time __9:00AM on date ___04/11/23____. Planned Procedure Time: __11:00AM . Time changes happen often and if your time is changed the preop area will call you the afternoon before. - You and your visitor will be asked to self-screen and do not enter if you have any COVID symptoms. - A mask is optional within the hospital at this time. Patients may have clear liquids (water, carbonated beverages, clear teas, apple juice) until 3 hours prior to surgery with a maximum of 20 ounces. - No food from midnight until time of surgery. Take the following medications with a SIP of water the morning of surgery: ___METOPROLOL DO NOT STOP ANY OF YOUR OTHER PRESCRIPTION MEDICATIONS PRIOR TO SURGERY ?EXCEPT THE FOLLOWING Medications to discontinue per physician __HOLD PLAVIX 5 DAYS PRE-OP PER DR JIN- LAST DOSE 04/05/23. HOLD ALL VITAMINS/SUPPLEMENTS 3 DAYS PRE-OP PER ANESTHESIA- LAST DOSE 04/07/23. Please no make-up, nail maldivian, hairspray, perfume, deodorant, or body powder the day of surgery. No jewelry (including any body piercings) or valuables the day of surgery, leave them at home. Please take a shower or bath the night before, or the morning of, surgery with an antibacterial soap. Wear comfortable, loose fitting clothing. - Jewelry must be removed prior to entering the operating room. Rings and piercings that are not removed may be cut off. - The hospital will not accept responsibility for valuables. - Please leave all valuables, including medications, at home the day of surgery. If you are going home after surgery, a licensed regional intermodal truck driver must drive you home. - NO public transportation without another adult if you receive anesthesia. - We recommend that an adult stay with you for 24 hours following discharge. - We also recommend that you do not drive, make important decision, drink alcoholic beverages, or take any drugs that were not prescribed by your health care provider for at least 24 hours after your discharge time.e. Follow any additional instructions given to you from your surgeon. If you or anyone in your household have experienced Covid symptoms in the past week, please notify your surgeon or the nurse liaison at the phone number below for possible testing. Telephone instructions given to ____PATIENT and asked if any additional questions and then verbalized understanding. Patient advised to call surgeon office or pre surgery nurse liaison [phone] if any additional questions.
[2023-05-18 09:51] VITALS: BMI 26.6
--- NOTE | 2023-05-18 10:07 | PC.NURSE ---
Report to the Outpatient Waiting Room, entrance under the green pavilion located off [facility], at time ___6:30AM____ on date ___05/23/23____. Planned Procedure Time: ___8:30AM . Time changes happen often and if your time is changed the preop area will call you the afternoon before. - You and your visitor will be asked to self-screen and do not enter if you have any COVID symptoms. - A mask is optional within the hospital at this time. Patients may have clear liquids (water, carbonated beverages, clear teas, apple juice) until 3 hours prior to surgery with a maximum of 20 ounces. - No food from midnight until time of surgery. Take the following medications with a SIP of water the morning of surgery: ___METOPROLOL DO NOT STOP ANY OF YOUR OTHER PRESCRIPTION MEDICATIONS PRIOR TO SURGERY ?EXCEPT THE FOLLOWING Medications to discontinue per physician ___HOLD PLAVIX 5 DAYS PRE-OP PER DR JIN- LAST DOSE 05/17/23 HOLD ALL VITAMINS/SUPPLEMENTS 3 DAYS PRE-OP PER ANESTHESIA- LAST DOSE 05/19/23 Please no make-up, nail thai, hairspray, perfume, deodorant, or body powder the day of surgery. No jewelry (including any body piercings) or valuables the day of surgery, leave them at home. Please take a shower or bath the night before, or the morning of, surgery with an antibacterial soap. Wear comfortable, loose fitting clothing. - Jewelry must be removed prior to entering the operating room. Rings and piercings that are not removed may be cut off. - The hospital will not accept responsibility for valuables. - Please leave all valuables, including medications, at home the day of surgery. If you are going home after surgery, a licensed driver retraining instructor must drive you home. - NO public transportation without another adult if you receive anesthesia. - We recommend that an adult stay with you for 24 hours following discharge. - We also recommend that you do not drive, make important decision, drink alcoholic beverages, or take any drugs that were not prescribed by your health care provider for at least 24 hours after your discharge time. Follow any additional instructions given to you from your surgeon. If you or anyone in your household have experienced Covid symptoms in the past week, please notify your surgeon or the nurse liaison at the phone number below for possible testing. Telephone instructions given to ___PATIENT and asked if any additional questions and then verbalized understanding. Patient advised to call surgeon office or pre surgery nurse liaison [phone] if any additional questions.
--- NOTE | 2023-05-22 13:12 | WPDANESEPPF ---
Anes - Initial Pre Proc Eval Procedure: Operation Date: 05/23/23 08:30 Proposed Procedures p Laparoscopic Bilateral Inguinal Hernia Repair with Mesh Davinci Assisted - Michael Greenberg DO Date/Time: 05/22/23 13:12 Surgeon: Michael Greenberg DO Pre Op Diagnosis: Bilateral Inguinal Hernia Patient Data Age: 77 Gender: M Height: 1.68 m Weight: 75 kg Allergies Allergy/AdvReac Type Severity Reaction Status Date / Time No Known Allergies Allergy Verified 05/18/23 09:45 Home Medications Medication Instructions Recorded Confirmed Type omega-3 fatty acids 1,000 mg 1,000 mg PO BID 01/15/19 05/18/23 History capsule (Fish Oil Concentrate) aspirin 81 mg tablet,delayed 81 mg PO DAILY 10/04/21 05/18/23 History release nitroglycerin 0.4 mg sublingual 0.4 mg sublingual Q5MIN PRN Chest 05/27/22 05/18/23 History tablet Pain montelukast 10 mg tablet See Rx Instructions .Route 10/07/22 05/18/23 Rx .COMPLEX #90 tabs clopidogrel 75 mg tablet See Rx Instructions .Route 12/19/22 05/18/23 Rx .COMPLEX #90 tabs cholecalciferol (vitamin D3) 50 50 mcg PO DAILY 02/14/23 05/18/23 History mcg (2,000 unit) capsule atorvastatin 80 mg tablet See Rx Instructions .Route 02/28/23 05/18/23 Rx .COMPLEX #90 tabs cyanocobalamin (vitamin B-12) 1,000 mcg PO DAILY 03/31/23 05/18/23 History 1,000 mcg capsule lisinopril 10 mg tablet 10 mg PO QAM 03/31/23 05/18/23 History metoprolol tartrate 25 mg tablet 25 mg PO BID 03/31/23 05/18/23 History Patient hx anesthesia problems: none Family hx anesthesia problems: none Results Review: All pre-operative results and documents have been reviewed as part of the pre-operative evaluation. [facility] Past Medical History Medical History (Updated 05/22/23 @ 13:13 by Yonatan Simons DO) ASHD (arteriosclerotic heart disease) BMI 25.0-25.9,adult BMI 26.0-26.9,adult BMI 27.0-27.9,adult BMI 28.0-28.9,adult BPH (benign prostatic hyperplasia) CAD (coronary artery disease) Dupuytren's contracture of left hand Elevated homocysteine Elevated PSA Encounter for routine adult health examination without abnormal findings Encounter for special screening examination for neoplasm of prostate Essential (primary) hypertension Hearing loss History of heart attack Hx of colonic polyps Hyperlipidemia Medicare annual wellness visit, subsequent On senior care drug therapy Pain of left thumb Right testicular pain Tobacco abuse Travelers' diarrhea Vitamin D deficiency Surgical History Surgical History (Updated 05/22/23 @ 13:13 by Yonatan Simons DO) History of heart artery stent x4 Hx of tonsillectomy S/P rotator cuff repair Family History Family History Mother Patient's mother is in good health, Onset Age: 93 Father Cerebrovascular accident Patient's father is Sibling Family history of coronary artery disease Other Family history of dementia Social History Social History Smoking packs per day: 0.5 Smoking cigarettes per day: 10.0 Years smoked: 44 Smoking pack-years: 22.00 Smoking status: Current every day smoker Tobacco type: cigarettes Second hand tobacco smoke exposure: Yes Additional smoking assessment comments: CURRENTLY 1/2 PACK/DAY Alcohol intake: current Drinks per week: 3 Alcohol use details: HEAVIER DRINKER IN PAST, REDUCED 2009 Substance use: never Substance use type: does not use Lack of Transportation: No Lack of Food: Never True Current Housing: I Have Housing Concerned About Future Housing: No Difficulty Paying Gas/Electric Bills: No Difficulty Paying for Meds: No Currently Unemployed: No Education: High School Diploma/GED Difficulty w/ Childcare or Family Care: No Living arrangements: with family Additional living arrangements comments: Occupation/Educat
[2023-05-23] VITALS (9 sets, daily range): BP systolic 127–166; BP diastolic 64–74; PULSE 59–75; RESP 12–20; TEMP 36.3–36.6; O2SAT 96–100; BMI 26.7
--- NOTE | 2023-05-23 07:13 | PM.IMHP ---
H&P: HPI History of Present Illness Date/Time: 05/23/23 07:13 Chief Complaint: bilateral inguinal hernias Narrative: 77 yo man presents for bilateral inguinal hernia repair. He reports no changes since last seen in office. Review of Systems Review of Systems: All systems reviewed & are unremarkable except as noted in HPI and below Constitutional: Constitutional: Denies chills, Denies fever(s), Denies headache(s) and Denies weight loss Eyes: Eyes: Denies change in vision ENT: Denies dizziness, Denies headache(s), Denies neck mass and Denies throat swelling Cardiovascular: Cardiovascular: Denies chest pain, Denies lightheadedness and Denies dyspnea Respiratory: Respiratory: Denies cough, Denies dyspnea and Denies wheezing Gastrointestinal: Gastrointestinal: Denies abdominal pain, Denies change in bowel habits, Denies nausea and Denies vomiting Genitourinary: Genitourinary: Denies hematuria and Denies dysuria Musculoskeletal: Musculoskeletal: Reports as per HPI Integumentary/Breasts: Skin/Breast: Reports as per HPI Neurologic: Denies dizziness and Denies headache(s) Allergic/Immunologic: Allergic/Immunologic: Denies throat swelling and Denies wheezing [facility] Past Medical History Medical History (Updated 05/22/23 @ 13:13 by Yonatan Simons DO) ASHD (arteriosclerotic heart disease) BMI 25.0-25.9,adult BMI 26.0-26.9,adult BMI 27.0-27.9,adult BMI 28.0-28.9,adult BPH (benign prostatic hyperplasia) CAD (coronary artery disease) Dupuytren's contracture of left hand Elevated homocysteine Elevated PSA Encounter for routine adult health examination without abnormal findings Encounter for special screening examination for neoplasm of prostate Essential (primary) hypertension Hearing loss History of heart attack Hx of colonic polyps Hyperlipidemia Medicare annual wellness visit, subsequent On senior care drug therapy Pain of left thumb Right testicular pain Tobacco abuse Travelers' diarrhea Vitamin D deficiency Surgical History Surgical History (Updated 05/22/23 @ 13:13 by Yonatan Simons DO) History of heart artery stent x4 Hx of tonsillectomy S/P rotator cuff repair Family History Family History Mother Patient's mother is in good health, Onset Age: 93 Father Cerebrovascular accident Patient's father is Sibling Family history of coronary artery disease Other Family history of dementia Social History Social History Smoking packs per day: 0.5 Smoking cigarettes per day: 10.0 Years smoked: 44 Smoking pack-years: 22.00 Smoking status: Current every day smoker Tobacco type: cigarettes Second hand tobacco smoke exposure: Yes Additional smoking assessment comments: CURRENTLY 1/2 PACK/DAY Alcohol intake: current Drinks per week: 3 Alcohol use details: HEAVIER DRINKER IN PAST, REDUCED 2009 Substance use: never Substance use type: does not use Lack of Transportation: No Lack of Food: Never True Current Housing: I Have Housing Concerned About Future Housing: No Difficulty Paying Gas/Electric Bills: No Difficulty Paying for Meds: No Currently Unemployed: No Education: High School Diploma/GED Difficulty w/ Childcare or Family Care: No Living arrangements: with family Additional living arrangements comments: Occupation/Education: retired Gender identity (if verbalized by the patient): Male Spiritual care concerns: No Meds Home Medications and Allergies Home Medications Medication Instructions Recorded Confirmed Type omega-3 fatty acids 1,000 mg 1,000 mg PO BID 01/15/19 05/18/23 History capsule (Fish Oil Concentrate) aspirin 81 mg tablet,delayed 81 mg PO DAILY 10/04/21 05/18/23 History release nitroglycerin 0.4 mg sublingual 0.4 mg sublingual Q5MIN PRN Chest 05/27/22 05/18/23 Histor
--- NOTE | 2023-05-23 07:15 | WPDHPUPDATE1 ---
History and Physical Update Update Date/Time: 05/23/23 07:15 History and Physical has been reviewed, including an updated exam of the patient. There are NO changes in the patient's condition. Risks, benefits, and alternatives have been discussed and questions answered. Patient agrees to proceed with procedure.
[2023-05-23] MEDS: LACTATED RINGERS 1,000 ML 30 ML IV CONT ×2 (07:40→10:03)
[2023-05-23] MEDS: ACETAMINOPHEN 500 MG TABLET 1000 MG PO (07:56)
[2023-05-23] MEDS: KETOROLAC 15 MG/ML VIAL (*BKC) IV PUSH (07:57)
[2023-05-23] MEDS: ceFAZolin 2 GM/D5W 50 ML 2 GM/50 ML BAG IVPB (08:36)
[2023-05-23] MEDS: BUPIVACAINE/EPINEPHRINE 0.5% 30 ML VIAL INFILTRATE (09:13)
--- NOTE | 2023-05-23 09:58 | W.PM.PROC2 ---
Procedure Note - Detailed Date of Procedure 05/23/23 Pre-op Diagnosis Bilateral Inguinal Hernia Post-op Diagnosis Same (Bilateral direct inguinal hernia) Procedure Performed Laparoscopic bilateral inguinal hernia repair with mesh, da Nkechi assisted Surgeon Michael Greenberg DO Anesthesia General and Local (0.5% bupivacaine with epinephrine) Indications This is a 77-year-old man who presented with bilateral groin pain for the past several months. He denied any noticeable bulge, but did notice more symptoms with activity. He was found to have bilateral reducible inguinal hernias on exam. The patient does have a cardiac stent history and is on aspirin and Plavix. Cardiology cleared holding the Plavix once he was 1 year out from stent placement. Discussions were made with the patient about treatment options and decision was made to proceed with robotic assisted laparoscopic bilateral inguinal hernia repair with mesh. Findings Laparoscopic bilateral inguinal hernia repair was performed. The patient was found to have bilateral direct inguinal defects. He did have a fairly full bladder despite trying to urinate preoperatively. A Fletcher catheter was placed during the surgery so that the bladder was not too dilated. A robotic transabdominal preperitoneal approach was utilized for repair. Once a wide enough preperitoneal pocket was created, I then placed a large 3DMax mid mesh overlying each myopectineal orifice. The right inguinal hernia was slightly larger than the left. No other intra-abdominal abnormalities were noted. Description of Procedure Procedure as well as risks, benefits, and alternatives were discussed with the patient. Written consent was obtained and placed in chart prior to procedure. Patient was brought back to surgical suite. He was placed supine on operating table. Time-out was done to confirm patient and procedure. He was then intubated by Anesthesia Department. His abdomen was prepped and draped in sterile fashion using chlorhexidine prep. 0.5% bupivacaine with epinephrine was infiltrated at each location for incision. An 8 mm incision was made in the left lateral abdomen, and a 5 mm Optiview trocar was advanced through the abdominal layers under direct visualization. Once inside the abdominal cavity, carbon dioxide insufflation was used to create a pneumoperitoneum. A camera was inserted and the abdominal cavity was inspected. The patient was placed in slight Trendelenburg position. An 8 millimeter incision was made on the right lateral abdomen and an 8 millimeter trocar was inserted under direct visualization. Another 8 millimeter incision was made just superior to the umbilicus and an 8 millimeter trocar was inserted under direct visualization. The 5 mm port was then removed and this was replaced with another 8 mm robotic port. The robotic arms were brought up to the patient's bedside and secured to the ports. The camera and instruments were inserted. I then moved over to the robotic console and took control of the camera and instruments. After careful inspection of the abdominal cavity, I began scoring the peritoneum along the right lower quadrant using scissors with electrocautery. The preperitoneal plane was entered and this was carefully dissected caudally along the inferior epigastric vessels. Careful dissection with scissors with electrocautery and blunt dissection was used to continue this dissection. I dissected far enough laterally to allow for mesh placement, and also dissected medially to identify the pubic arch and Ivan's ligament. The hernia sac was identified and carefully dissected posteriorly. The cord contents were also identified and the peritoneum was carefully dissected far enough posteriorly to allow for mesh placement. Once an adequate pocket was created, I then placed the mesh within the preperitoneal pocket and carefully unfolded it. The mesh was centered on the hernia defect with adequate overlap cir
== END 2023-05-23 11:55 | disposition home or self-care (01) ==
PROVIDERS: PCP Internal Medicine; Visit Provider Surgery
PROC: 8E0Y4CZ Robotic Assisted Procedure of Lower Extremity, Percutaneous Endoscopic Approach (ICD-10-PCS; CPT 49650; principal; 2023-05-23 08:30)
DX: K40.20 Bilateral inguinal hernia, without obstruction or gangrene, not specified as recurrent (principal); I25.10 Atherosclerotic heart disease of native coronary artery without angina pectoris; I10 Essential (primary) hypertension; E78.5 Hyperlipidemia, unspecified; E55.9 Vitamin D deficiency, unspecified; F17.210 Nicotine dependence, cigarettes, uncomplicated
CPT/HCPCS: 49650; 36415; 86850; 86900; 86901; 93005; A9270; C1781; J0690; J1100; J1170; J1596; J1885; J2405; J2704; J3010; J7030; J7120

== ENCOUNTER 2024-03-21 14:24 | Outpatient (CLI) | payer MEDICARE, SELFPAY ==
[2024-03-21 14:48] LABS: Add Urine Microscopic? NO; Appearance Urine Clear (Clear); Bilirubin Urine Negative (Negative); Blood Urine Negative (Negative); Color Urine Yellow (Yellow); Glucose Urine UA Negative (Negative); Ketones Urine Negative (Negative); Leukocyte Esterase Ur Negative LEU/UL (Negative); Nitrate Urine Negative (Negative); Protein Urine Negative (Negative); Specific Grav Ur 1.015 (1.001-1.035); Urobilinogen Urine 0.2 mg/dL (<2.0)
[2024-03-21 14:50] LABS: Basophils Percent Auto 0.4 % (0.2-1.2); Eosinophils Absolute Auto 0.1 K/mm3 (0-0.3); Eosinophils Percent Auto 0.6 % (0-4.4); Hematocrit 44.1 % (42.0-52.0); Hemoglobin 14.3 g/dL (14.0-18.0); Immature Granulocyte Absolute 0.03 K/mm3 (0.00-0.031); Immature Granulocyte Percent A 0.3 % (0-0.5); Lymphocytes Absolute Auto 2.05 K/mm3 (0.9-3.2); Lymphocytes Percent Auto 21.9 % (18.3-44.2); Mean Corpuscular HGB Conc 32.4 g/dl (32-36); Mean Corpuscular Hemoglobin 32.1 pg (26-34); Mean Corpuscular Volume 98.9 fl (80-100); Monocytes Absolute Auto 0.6 K/mm3 (0.1-0.6); Monocytes Percent Auto 6.4 % (2.6-8.5); Neutrophils Absolute Auto 6.6 K/mm3 (1.3-6.7); Neutrophils Percent Auto 70.4 % (45.5-73.1); Platelet Count Result 204 k/mm3 (150-375); Red Blood Count 4.46 M/mm3 (4.6-6.20); Red Cell Distribution Width 12.3 % (11.5-14.5); White Blood Count 9.3 K/mm3 (4.5-10.0)
[2024-03-21 15:20] LABS: Alanine Aminotransferase 19 U/L (6-50); Albumin Level 4.1 g/dL (3.5-5.1); Alkaline Phosphatase 109 U/L (38-126); Anion Gap 8 mmol/L (4-12); Aspartate Amino Transferase 25 U/L (17-59); Bilirubin,Total 0.8 mg/dL (0.2-1.3); Blood Urea Nitrogen 12 mg/dL (9-20); Calcium 9.1 mg/dL (8.4-10.2); Carbon Dioxide 29 mmol/L (22-30); Chloride 104 mmol/L (98-107); Cholesterol 132 mg/dL (0-200); Estimated Glomerular Filt Rate > 60; Glucose 95 mg/dL (65-110); HDL Direct 42 mg/dL; Potassium 3.9 mmol/L (3.4-5.0); Sodium 141 mmol/L (137-145); Triglycerides 57 mg/dL (<150)
[2024-03-21 15:31] LABS: LDL Cholesterol Direct 69 mg/dL
[2024-03-21 15:37] LABS: Free T4 Free Thyroxine 1.08 ng/dL (0.78-2.19); Vitamin D 25 Hydroxy 53.8 ng/mL
[2024-03-21 16:26] LABS: Hemoglobin A1C 5.6 % (<5.7)
== END 2024-03-21 14:25 | disposition home or self-care (01) ==
PROVIDERS: PCP Internal Medicine; Visit Provider Internal Medicine
DX: I25.10 Atherosclerotic heart disease of native coronary artery without angina pectoris (principal); I10 Essential (primary) hypertension; E78.2 Mixed hyperlipidemia; Z79.899 Other long term (current) drug therapy; E55.9 Vitamin D deficiency, unspecified; R53.83 Other fatigue; Z13.29 Encounter for screening for other suspected endocrine disorder; Z13.1 Encounter for screening for diabetes mellitus
CPT/HCPCS: 36415; 80053; 80061; 81003; 82306; 83036; 84439; 84443; 85025

== ENCOUNTER 2024-03-29 10:17 | Outpatient (CLI) | payer MEDICARE, SELFPAY ==
--- NOTE | ~2024-03-29 | CT_ITS ---
EXAMINATION:CT lung screening DATE: 03/29/2024 10:40 INDICATION: Personal history of nicotine dependence. Current smoker with 30 pack year history. TECHNIQUE: Computed tomography (CT) of the chest was performed without intravenous contrast. Automate d exposure control and iterative reconstruction technique were employed. The dose-length product (DLP ) was 75.79 mGy-cm. COMPARISON: Chest CT 10/14/2021 FINDINGS: There is mild emphysema. There is mild atelectasis bilaterally. There is a 3 mm nodule in l eft upper lobe. No pleural effusion. Cardiomegaly is noted. There are coronary artery calcifications. No pericardial effusion. There is moderate thoracic spondylosis. There is mild chronic anterior wedg ing of multiple vertebral bodies. IMPRESSION: 1. Lung-RADS category 2: Benign appearance or behavior. Continue annual screening with noncontrast lo w-dose chest CT in 12 months. Reviewed, dictated and finalized at location A. SHOW HOST IMPRESSION: 1. Lung-RADS category 2: Benign appearance or behavior. Continue annual screeni ng with noncontrast low-dose chest CT in 12 months.
--- OUTSIDE RECORDS SUMMARY | 2024-04-04 06:21 | XMS_ITS | Referral Summary ---
Author Organization [facility] [address] Address [address] [place] [address] Care Team Providers Care Land Manager Name Role Phone Jovan Lowery MD Primary Care Provider Allergies No known active allergies Medications omega-3 fatty acids-fish oil 340-1,000 mg capsule take 1 by Oral route 2 times every day 0 2 Active lisinopril (PRINIVIL,ZESTR [place]) 10 mg tablet take 1 Tablet by oral route every day 0 0 3 Active atorvastatin (LIPITOR) 80 mg tablet take 1 tablet by oral route every day 0 0 3 Active metoprolol (LOPRESSOR) 25 mg tablet take 1Tablet by oral route every 12 hours 0 0 3 Active clopidogrel (PLAVIX) 75 mg tablet TAKE 1 TABLET BY MOUTH EVERY DAY 90 3 3 Active montelukast (SINGULAIR) 10 mg tablet Take 1 tablet (10 mg total) by mouth daily 0 9 Active folic acid (FOLVITE) 1 mg tablet Take 1 tablet (1 mg total) by mouth daily Active cyanocobalamin (Vitamin B-12) 1,000 mcg tabletIndicatio ns:Prevention of Vitamin B12 Deficiency Take 1 tablet (1,000 mcg total) by mouth daily Active niacin 500 mg tablet Take 1 tablet (500 mg total) by mouth daily with breakfast Active aspirin 81 mg enteric coated tablet Take 1 tablet (81 mg total) by mouth daily Active nitroglycerin (NITROSTAT) 0.[address] 1 tablet (0.4 mg total) under the tongue every 5 (five) minutes as needed for chest pain May repeat dose q 5 min, up to 3 doses total 25 tablet 11 3 11/03/19 25 Active Active Problems Problem Noted Date Diagnosed Date Chest heaviness 04/28/2022 Hyperlipidemia LDL goal <70 01/01/2021 Essential hypertension 01/01/2021 Tobacco abuse 01/01/2021 Coronary artery disease invo lving [place] coronary artery of [place] heart without angina pectoris 04/27/2017 History of coronary artery stent placement 04/27 Social History Tobacco Use Types Packs/Day Years Used Date Smoking Tobacco: Every Day Smokeless Tobacco: Never Tobacco Cessation:Ready to Q uit: Not Asked; Counseling Given: Not Answered Alcohol Use Standard Drinks/Week Comments No 0 (1 standard drink = 0.6 oz pur e alcohol) Sex and Gender Information Value Date Recorded Sex Assigned at Not on file 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 Gender Identity Male 08/07/2020 10:28 AM CDT Sexual Orientation Straight 08/07/2020 10 :28 AM CDT Last Filed Vital Signs Vital Sign Reading Time Taken Comments Blood Pressure 130/68 11/03/2023 11:31 AM CDT Pulse 54 11/03/2023 11:31 AM CDT Temperature - - Respiratory Rate 16 11/03/2023 11:31 AM CDT Oxygen Saturation 94% 04/25/2023 11:23 AM HARD TILE SETTER APPRENTICE Inhaled Oxygen Concentration - - Weight 74.4 kg (164 lb) 11/03/2023 11:31 AM CDT Height 167.6 cm (5' 6 ) 11/03/2023 11:31 AM CDT Body Mass Index 26.47 11/03/2023 11:31 AM CDT Plan of Treatment Not on file Insurance BCBS MEDICARE [place] MEDICARE MEDICARE SOLUTIONS Care Teams Land Manager Relationship Specialty Start Date End Date Jovan Lowery MD [address] [place] [address] PCP - General 01/03/14
--- OUTSIDE RECORDS SUMMARY | 2024-04-04 06:21 | XMS_ITS | Clinical Summary ---
Author Organization [facility] [address] Address [address] [place] [address] Care Team Providers Care Parts Consultant Name Role Phone Jovan Lowery MD Primary Care Provider [phone] Allergies No known active allergies Medications omega-3 [...] abuse 01/01/2021 Coronary artery disease invo lving [place] coronary artery of [place] heart without angina pectoris 04/27/2017 History of coronary artery stent placement 04/27 Medical History Medical History Date Comments Hypertension Hypertension Hx Other Medical dyslipidemia Family History Medical History Relation Name Comments Heart attack Father 2 Myocardial Infa rction; Relation Name Status Comments Father 1 Alive Father 2 Social History Tobacco Use Types Packs/Day Years Used Date Smoking Tobacco: Every Day Smokeless Tobacco: Never Tobacco Cessation:Ready to Q uit: Not Asked; Counseling Given: Not Answered Alcohol Use Standard Drinks/Week Comments No 0 (1 standard drink = 0.6 oz pur e alcohol) Sex and Gender Information Value Date Recorded Sex Assigned at Not on file 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 Gender Identity Male 08/07/2020 10:28 AM CDT Sexual Orientation Straight 08/07/2020 10 :28 AM CDT Obstetrics History Last Filed Vital Signs Vital Sign Reading Time Taken Comments Blood Pressure 130/68 11/03/2023 11:31 AM CDT Pulse 54 11/03/2023 11:31 AM CDT Temperature - - Respiratory Rate 16 11/03/2023 11:31 AM CDT Oxygen Saturation 94% 04/25/2023 11:23 AM BALANCE TRUER Inhaled Oxygen Concentration - - Weight 74.4 kg (164 lb) 11/03/2023 11:31 AM CDT Height 167.6 cm (5' 6 ) 11/03/2023 11:31 AM CDT Body Mass Index 26.47 11/03/2023 11:31 AM CDT Plan of Treatment Health Maintenance Due Date Last Done Comments Depression Screening 1945 Fall Risk Assessment 1945 DTaP/Tdap/Td Vaccine (1 - Tdap) 12/20/1954 Hepatitis B Screening 12/20/1961 Zoster Vaccine (2 of 3) 11/10/2008 09/15/2008 Abdominal Aortic Aneurysm (A AA) Screen 12/20/2008 Well Visit 65+ 12/20/2008 Pneumococcal vaccine 65+ (2 of 2 - PCV) 02/05/2018 02/05/2017, 09/14/2009 Influenza Vaccine (#1) 2023 9, 11/14/2016, 12/13/2015, Additional history exists Insurance BCBS MEDICARE [place] MEDICARE MEDICARE SOLUTIONS Care Teams Parts Consultant Relationship Specialty Start Date End Date Jovan Lowery MD [address] [place] [address] PCP - General 01/03/14
== END 2024-03-29 10:18 | disposition home or self-care (01) ==
PROVIDERS: PCP Internal Medicine; Visit Provider Internal Medicine
DX: Z12.2 Encounter for screening for malignant neoplasm of respiratory organs (principal); Z87.891 Personal history of nicotine dependence
CPT/HCPCS: 71271

== ENCOUNTER 2024-07-31 14:27 | Outpatient (CLI) | payer MEDICARE, SELFPAY ==
--- OUTSIDE RECORDS SUMMARY | 2024-07-31 14:35 | XMS_ITS | Clinical Summary ---
Author Organization [facility] [place] [address] Address [address] [place] [address] Care Team Providers Care Assurance Specialist Name Role Phone Jovan Lowery MD Primary Care Provider [phone] Allergies No known active allergies Medications omega-3 [...] Active Problems Problem Noted Date Diagnosed Date Pulmonary HTN 07/12/2024 Chest heaviness 04/28/2022 Hyperlipidemia LDL goal <70 01/01/2021 Essential hypertension 01/01/2021 Tobacco abuse 01/01/2021 Coronary artery disease invo lving [place] coronary artery of [place] heart without angina pectoris 04/27/2017 History of coronary artery stent placement 04/27 Encounters Date Type Department Care Team Description 07/15/2024 Orders Only [facility] Cardiology [address] [address] [place] [address] ProviderYohan MD 07/12/2024 11:15 AM CDT Office Visit [facility] Cardiology at [address] [place] [address] Abad Lamas MD Coronary artery disease involving [place] coronary artery of [place] heart without angina pectoris (Primary Dx); Essential hypertension; Hyperlipidemia LDL goal <70; Tobacco abuse; Pulmonary HTN (HCC) from Last 3 Months Medical History Medical History Date Comments Hypertension [...] on file 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 Gender Identity Male 08/07/2020 10:28 AM CDT Sexual Orientation Straight 08/07/2020 10 :28 AM CDT Obstetrics History Last Filed Vital Signs Vital Sign Reading Time Taken Comments Blood Pressure 122/72 07/12/2024 11:31 AM CDT Pulse 62 07/12/2024 11:31 AM CDT Temperature - - Respiratory Rate 16 11/03/2023 11:31 AM CDT Oxygen Saturation 97% 07/12/2024 11:31 AM CDT Inhaled Oxygen Concentration - - Weight 75.8 kg (167 lb) 07/12/2024 11:31 AM CDT Height 167.6 cm (5' 6 ) 07/12/2024 11:31 AM CDT Body Mass Index 26.95 07/12/2024 11:31 AM CDT Plan of Treatment Health Maintenance Due Date Last Done Comments Depression Screening 1945 Fall Risk Assessment 1945 DTaP/Tdap/Td Vaccine (1 - Tdap) 12/20/1954 Hepatitis B Screening 12/20/1961 Zoster Vaccine (2 of 3) 11/10/2008 09/15/2008 Abdominal Aortic Aneurysm (A AA) Screen 12/20/2008 Well Visit 65+ 12/20/2008 Pneumococcal vaccine 65+ (2 of 2 - PCV) 02/05/2018 02/05/2017, 09/14/2009 Influenza Vaccine (Season Ended) 2024 12/03/2018, 11/14/2016, 12/13/2015, Additional history exists Insurance BCBS MEDICARE [place] [id number] MEDICARE [facility] MEDICARE ADVANTAGE Care Teams Assurance Specialist Relationship Specialty Start Date End Date Jovan Lowery MD [address] [place] [address] PCP - General 01/03/14
--- OUTSIDE RECORDS SUMMARY | 2024-07-31 14:35 | XMS_ITS | Referral Summary ---
Author Organization [facility] [address] [facility] [address] [place] [address] Care Team Providers Care Optical Engineering Manager Name Role Phone Jovan Lowery MD Primary Care Provider [phone] Encounters Date Type Department Care Team Description 07/15/[address] [facility] Medical [facility] Cardiology [address] [place] [address] ProviderYohan MD 07/12/2024 11:15 AM CDT Office Visit 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
[2024-07-31 15:04] LABS: Basophils Percent Auto 0.5 % (0.2-1.2); Eosinophils Absolute Auto 0.1 K/mm3 (0-0.3); Eosinophils Percent Auto 1.1 % (0-4.4); Hematocrit 44.3 % (42.0-52.0); Hemoglobin 14.4 g/dL (14.0-18.0); Immature Granulocyte Absolute 0.04 K/mm3 (0.00-0.031); Immature Granulocyte Percent A 0.5 % (0-0.5); Lymphocytes Absolute Auto 2.18 K/mm3 (0.9-3.2); Lymphocytes Percent Auto 24.7 % (18.3-44.2); Mean Corpuscular HGB Conc 32.5 g/dl (32-36); Mean Corpuscular Volume 98.4 fl (80-100); Monocytes Absolute Auto 0.6 K/mm3 (0.1-0.6); Monocytes Percent Auto 6.9 % (2.6-8.5); Neutrophils Absolute Auto 5.9 K/mm3 (1.3-6.7); Neutrophils Percent Auto 66.3 % (45.5-73.1); Platelet Count Result 195 k/mm3 (150-375); Red Cell Distribution Width 12.5 % (11.5-14.5); White Blood Count 8.8 K/mm3 (4.5-10.0)
[2024-07-31 16:22] LABS: Hemoglobin A1C 5.4 % (<5.7)
[2024-07-31 16:32] LABS: Alanine Aminotransferase 21 U/L (6-50); Albumin Level 4.4 g/dL (3.5-5.1); Alkaline Phosphatase 92 U/L (38-126); Anion Gap 7 mmol/L (4-12); Aspartate Amino Transferase 35 U/L (17-59); Bilirubin,Total 0.8 mg/dL (0.2-1.3); Blood Urea Nitrogen 15 mg/dL (9-20); Calcium 9.4 mg/dL (8.4-10.2); Carbon Dioxide 27 mmol/L (22-30); Chloride 104 mmol/L (98-107); Cholesterol 142 mg/dL (0-200); Estimated Glomerular Filt Rate > 60; Glucose 92 mg/dL (65-110); HDL Direct 49 mg/dL; Potassium 4.5 mmol/L (3.4-5.0); Sodium 138 mmol/L (137-145); Triglycerides 70 mg/dL (<150)
[2024-07-31 16:45] LABS: LDL Cholesterol Direct 65 mg/dL
== END 2024-07-31 14:28 | disposition home or self-care (01) ==
PROVIDERS: PCP Internal Medicine; Visit Provider Internal Medicine
DX: E78.2 Mixed hyperlipidemia (principal); Z79.899 Other long term (current) drug therapy; Z13.1 Encounter for screening for diabetes mellitus; I10 Essential (primary) hypertension
CPT/HCPCS: 36415; 80053; 80061; 83036; 85025

== ENCOUNTER 2024-12-09 13:41 | Outpatient (CLI) | payer MEDICARE, SELFPAY ==
--- OUTSIDE RECORDS SUMMARY | 2024-12-09 14:04 | XMS_ITS | Clinical Summary ---
Author Organization [facility] [place] [address] Address [address] [place] [address] Care Team Providers Care Document Control Assistant Name Role Phone Jovan Lowery MD Primary Care Provider [phone] Allergies No known active allergies Medications omega-3 [...] 3 doses total 25 tablet 11 3 Active Active Problems Problem Noted Date Diagnosed Date Pulmonary HTN 07/12/2024 Chest heaviness 04/28/2022 Hyperlipidemia LDL goal <70 01/01/2021 Essential hypertension 01/01/2021 Tobacco abuse 01/01/2021 Coronary artery disease invo lving [place] coronary artery of [place] heart without angina pectoris 04/27/2017 History of [...] on file 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 Gender Identity Male 08/07/2020 10:28 AM CDT [...] 11:31 AM CDT Height 167.6 cm (5' 6) 07/12/2024 11:31 AM CDT Body Mass Index [...] PCV) 02/05/2018 02/05/2017, 09/14/2009 Influenza Vaccine (#1) 2024 9, 11/14/2016, 12/13/2015, Additional history exists Insurance [place] MEDICARE [place] MEDICARE [facility] MEDICARE [facility] Address: [facility] [address] [place] [address] Care Teams Document Control Assistant Relationship Specialty Start Date End Date Jovan Lowery MD [address] [place] [address] [place] [address] PCP - General 01/03/14
--- OUTSIDE RECORDS SUMMARY | 2024-12-09 14:04 | XMS_ITS | Encounter Summary ---
Author Organization [facility] Address [address] [place] [address] Care Team Providers Care Long Term Acute Care Registered Nurse Name Role Phone Jovan Lowery MD Primary Care Provider Encounter Details Date Type Department Care Team (Late st Contact Info) Description 08/24/2021 Orders Only [facility] Health Information Management [address] [place] [id number] Scanning, Provider Social History Tobacco Use Types Packs/Day Years Used Date Smoking Tobacco: Every Day Smokeless Tobacco: Never Alcohol Use Standard Drinks/Week Comments No 0 (1 standard drink = 0.6 oz pur e alcohol) Sex and Gender Information Value Date Recorded Sex Assigned at Not on file 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 Gender Identity Male 08/07/2020 10:28 AM CDT Sexual Orientation Straight 08/07/2020 10 :28 AM CDT documented as of this encounter Plan of Treatment Not on file documented as of this encounter Procedures Procedure Name Priority Date/Time Associated Diagnosis Comments SCAN - LABS 08/24/2021 documented in this encounter Results * SCAN - LABS (08/24/2021) us Provider Scanning Final Result documented in this encounter Visit Diagnoses Not on filedocumented in this encounter Care Teams Long Term Acute Care Registered Nurse Relationship Specialty Start Date End Date Jovan Lowery MD [address] [facility] [address] [place] [address] PCP - General 01/03/14 documented as of this encounter
[2024-12-09 14:23] LABS: Add Urine Microscopic? NO; Appearance Urine Clear (Clear); Glucose Urine UA Negative (Negative); Leukocyte Esterase Ur Negative LEU/UL (Negative); Nitrate Urine Negative (Negative); Specific Grav Ur 1.008 (1.001-1.035)
[2024-12-09 14:47] LABS: Alanine Aminotransferase 19 U/L (6-50); Albumin Level 4.4 g/dL (3.5-5.1); Alkaline Phosphatase 114 U/L (38-126); Anion Gap 8 mmol/L (4-12); Aspartate Amino Transferase 28 U/L (17-59); Bilirubin,Total 0.8 mg/dL (0.2-1.3); Blood Urea Nitrogen 14 mg/dL (9-20); Calcium 9.5 mg/dL (8.4-10.2); Carbon Dioxide 25 mmol/L (22-30); Chloride 102 mmol/L (98-107); Cholesterol 144 mg/dL (0-200); Estimated Glomerular Filt Rate > 60; Glucose 100 mg/dL (65-110); HDL Direct 49 mg/dL; Potassium 4.2 mmol/L (3.4-5.0); Sodium 135 mmol/L (137-145); Total Protein 7.5 g/dL (6.3-8.2); Triglycerides 57 mg/dL (<150)
[2024-12-09 14:58] LABS: Hemoglobin A1C 5.6 % (<5.7)
== END 2024-12-09 13:42 | disposition home or self-care (01) ==
LOC: ANHLAB 13:42
PROVIDERS: PCP Internal Medicine; Visit Provider Internal Medicine
DX: Z79.899 Other long term (current) drug therapy (principal); I10 Essential (primary) hypertension; Z13.1 Encounter for screening for diabetes mellitus; E78.2 Mixed hyperlipidemia; E55.9 Vitamin D deficiency, unspecified
CPT/HCPCS: 36415; 80053; 80061; 81003; 82306; 83036

== ENCOUNTER 2025-01-07 16:43 | Outpatient (CLI) | payer MEDICARE, SELFPAY ==
[2025-01-07 17:15] LABS: Alanine Aminotransferase 20 U/L (6-50); Albumin Level 4.3 g/dL (3.5-5.1); Alkaline Phosphatase 96 U/L (38-126); Anion Gap 3 mmol/L (4-12); Aspartate Amino Transferase 29 U/L (17-59); Bilirubin,Total 0.6 mg/dL (0.2-1.3); Blood Urea Nitrogen 15 mg/dL (9-20); Calcium 9.0 mg/dL (8.4-10.2); Carbon Dioxide 29 mmol/L (22-30); Chloride 104 mmol/L (98-107); Cholesterol 137 mg/dL (0-200); Estimated Glomerular Filt Rate > 60; Glucose 92 mg/dL (65-110); HDL Direct 47 mg/dL; Hemoglobin A1C 5.4 % (<5.7); Potassium 4.0 mmol/L (3.4-5.0); Sodium 136 mmol/L (137-145); Total Protein 7.0 g/dL (6.3-8.2); Triglycerides 93 mg/dL (<150)
--- OUTSIDE RECORDS SUMMARY | 2025-01-07 17:57 | XMS_ITS | Clinical Summary ---
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 [address] [place] [address] Care Teams Tobacco Cloth Reclaimer Relationship Specialty Start Date End Date Jovan Lowery MD PCP - General 01/03/14
== END 2025-01-07 16:44 | disposition home or self-care (01) ==
LOC: ANHLAB 16:44
PROVIDERS: PCP Internal Medicine; Visit Provider Internal Medicine
DX: I10 Essential (primary) hypertension (principal); Z79.899 Other long term (current) drug therapy; Z13.1 Encounter for screening for diabetes mellitus; E78.2 Mixed hyperlipidemia; E55.9 Vitamin D deficiency, unspecified
CPT/HCPCS: 36415; 80053; 80061; 82306; 83036